=== PATIENT | male | born 1955 | race Caucasian/White ===

== ENCOUNTER 2019-05-29 06:08 | Day surgery (SDC) | payer OTHER ==
[~2019-05-29] VITALS: Ht 180.3 cm; Wt 130.5 kg
[~2019-05-29 06:08] MED LIST: ASPI-1 PO; CARV6.253 PO; FURO40TA4 PO; LISI2.5T2 PO; NO HOME MEDS
[2019-05-29 06:15] VITALS: BP 129/63
[2019-05-29] MEDS ORDERED: normal saline 1000ml 1,000 ML IV SCH (06:20)
[2019-05-29] MEDS ORDERED: APIX5TAB3 PO (06:32)
[2019-05-29] MEDS ORDERED: MELA3TAB64 PO (06:32)
[2019-05-29] MEDS ORDERED: CARV-49 PO (06:57)
[2019-05-29] MEDS ORDERED: FURO40TA4 PO (06:57)
[2019-05-29] MEDS ORDERED: LISI-642 PO (06:57)
[2019-05-29] MEDS ORDERED: ASPI-1264 PO (06:57)
--- NOTE | 2019-05-29 07:09 | NUR ---
Patient arrived from [facility] via [place] with orellana catheter in place and a right chest tube in place that appears to be intact and secured. 10ml of dark red drainage is marked by jyoti on the atrium. orellana cath has light aníbal urine 225ml of urine
[2019-05-29 08:44] VITALS: BP_SYST 117; BP_SYST 128; BP_DIAS 63; BP_DIAS 70
[2019-05-29 09:00] VITALS: BP 117/63
[2019-05-29 09:15] VITALS: BP 143/54
[2019-05-29 09:30] VITALS: BP 139/72
== END 2019-05-29 09:45 ==
LOC: SSTAY O 06:08
PROVIDERS: ATTEND Radiology Diagnostic Radiology
DX: J90 Pleural effusion, not elsewhere classified (principal); Z88.8 Allergy status to other drugs, medicaments and biological substances; Z79.899 Other long term (current) drug therapy
CPT/HCPCS: 32557